=== PATIENT | female | born 1945 | race Caucasian/White ===

== ENCOUNTER → 2017-04-09 | Outpatient (CLI) | payer MEDICARE ==
[2016-05-18 14:35] VITALS: BP 119/60
[~2017-04-09] MED LIST: AMLO5TAB4 PO; ASPI325T8 PO; ATOR20TA PO; CALC1TAB75 PO; CLOP75TA PO; LISI-334 PO; NITR0.4T SL; TIZA4TAB8 PO; TRAM50TA PO; VENL150C PO; ZONI100C33 PO
--- NOTE | 2017-04-09 15:09 | CARD ---
APPROVED REPORT EXAM: Two-dimensional and M-mode echocardiogram with Doppler and color Doppler. Other Information Quality : Good INDICATION Cardiac Disease: CAD 2D DIMENSIONS RVDd2.7 (2.9-3.5cm)Left Atrium(2D)3.8 (1.6-4.0cm) IVSd0.8 (0.7-1.1cm)Aortic Root(2D)2.4 (2.0-3.7cm) LVDd4.6 (3.9-5.9cm)LVOT Diameter2.1 (1.8-2.4cm) PWd0.8 (0.7-1.1cm)LVDs3.3 (2.5-4.0cm) FS (%) 28.1 %SV52.3 ml LVEF(%)54.5 (>50%) Aortic Valve AoV Peak Zack.161.6cm/sAoV VTI35.1cm AO Peak GR.10.4mmHgLVOT Peak Zack.105.8cm/s AO Mean GR.6mmHgAVA (VMAX)2.21cm2 ED (VTI)2.30cm2 Mitral Valve MV E Jvdlwmlc08.6cm/sMV DECEL DMUD396va MV A Mwfdebxn197.8cm/sE/A Ratio0.8 Tricuspid Valve TR P. Qrzsgqtz612nn/sRAP JCBCRLSY0hgQg TR Peak Gr.04naUqESLC93ujEz Pulmonary Vein S1 Pfnbdiuo77.3cm/sD2 Sodjghlz57.1cm/s LEFT VENTRICLE The left ventricle is normal size. There is normal left ventricular wall thickness. The left ventricu lar systolic function is normal. The ejection fraction is 55-60%. There is normal LV segmental wall m otion. Transmitral Doppler flow pattern is Grade I-abnormal relaxation pattern. RIGHT VENTRICLE The right ventricle is normal size. The right ventricular systolic function is normal. ATRIA The left atrium size is normal. The right atrium size is normal. The interatrial septum is intact wit h no evidence for an atrial septal defect or patent foramen ovale as noted on 2-D or Doppler imaging. AORTIC VALVE The aortic valve is calcified but opens well. Doppler and Color Flow revealed no significant aortic r egurgitation. There is no significant aortic valvular stenosis. MITRAL VALVE The mitral valve is calcified but opens well. There is no evidence of mitral valve prolapse. There is no mitral valve stenosis. Doppler and Color-flow revealed trace mitral regurgitation. TRICUSPID VALVE The tricuspid valve is normal in structure and function. Doppler and Color Flow revealed physiologica l tricuspid regurgitation. The PA pressure was estimated at 21 mmHg. There is no tricuspid valve sten osis. PULMONIC VALVE The pulmonary valve is normal in structure and function. Doppler and Color Flow revealed trace pulmon ic valvular regurgitation. There is no pulmonic valvular stenosis. GREAT VESSELS The aortic root is normal in size. The ascending aorta is normal in size. The IVC is normal in size a nd collapses >50% with inspiration. PERICARDIAL EFFUSION There is no evidence of significant pericardial effusion. Critical Notification Critical Value: No <Conclusion> The left ventricular systolic function is normal. The ejection fraction is 55-60%. There is normal LV segmental wall motion. Transmitral Doppler flow pattern is Grade I-abnormal relaxation pattern. Doppler and Color-flow revealed trace mitral regurgitation. There is no evidence of significant pericardial effusion.
--- NOTE | 2017-04-09 15:25 | RAD ---
EXAM: Bilateral lower extremity arterial Doppler. HISTORY: Bilateral lower extremity pain and imbalance. COMPARISON: None. FINDINGS: Grayscale and Doppler analysis of the lower extremity arterial systems was performed. On the right, there are monophasic waveforms throughout. There is flow within the dorsalis pedis artery. On the left, the waveform appears monophasic within the common femoral artery, but this may be artifactual, as there are biphasic waveforms more distally throughout the left lower artery. Alternatively, there may be affected collateralization distal to the common femoral artery. There appear to be triphasic at the anterior tibial artery. IMPRESSION: 1. Flow limiting stenosis proximal to the right lower history arterial system. 2. Mildly flow limiting stenosis on the left, possibly with supplementation by thick collateralization to the left proximal superficial femoral artery.
== END | disposition home or self-care (01) ==
LOC: ECHO 13:09
PROVIDERS: ATTEND Physician Assistant Medical
DX: I08.1 Rheumatic disorders of both mitral and tricuspid valves (principal); R26.89 Other abnormalities of gait and mobility
CPT/HCPCS: 93306; 93925

== ENCOUNTER 2017-04-23 08:59 | Observation (INO) | payer MEDICARE ==
[~2017-04-23] VITALS: Ht 157.5 cm; Wt 93.5 kg
[2017-04-23] VITALS (22 sets, daily range): BP systolic 97–187; BP diastolic 61–91
[2017-04-23] MEDS ORDERED: DULO60CA6 PO (09:20)
[2017-04-23] MEDS ORDERED: CYAN10002 IJ (09:20)
[2017-04-23] MEDS ORDERED: ACET-704 PO (09:20)
[2017-04-23] MEDS ORDERED: LIDOCAINE 2% 20 ML VIAL. ONE ×2 (09:35→11:00)
[2017-04-23] MEDS ORDERED: ASPI-482 PO (09:54)
[2017-04-23 09:55] LABS: HEMOGLOBIN 11.9 g/dL (12.0-15.5); RED BLOOD COUNT 3.97 x10^6/uL (3.50-5.40); RED CELL DISTRIBUTION WIDTH 14.9 % (11.5-14.5); WHITE BLOOD COUNT 11.3 x10^3/uL (4.0-11.0)
[2017-04-23 09:59] LABS: CREATININE 1.7 mg/dL (0.6-1.0); GFR 29.5; POTASSIUM 4.7 mmol/L (3.5-5.1)
[2017-04-23] MEDS ORDERED: diphenhydrAMINE 50 MG/ML VIAL IVP ONE (10:00)
[2017-04-23] MEDS ORDERED: methylPREDNISolone SOD SUCC PF 125 MG/2 ML VIAL. IV ONE (10:00)
[2017-04-23] MEDS ORDERED: FAMOTIDINE 20 MG/2 ML VIAL IVP ONE (10:00)
[2017-04-23 10:16] LABS: INR 1.1 (0.8-1.1); PROTHROMBIN TIME PATIENT 13.2 SEC (11.7-14.0)
[2017-04-23] MEDS: IV 1/2 NORMAL SALINE 1,000 ML IV SCH ×2 (10:30→22:44)
[2017-04-23] MEDS ORDERED: fentaNYL PF VIAL 100 MCG/2 ML VIAL ONE ×2 (10:31→11:33)
[2017-04-23] MEDS ORDERED: MIDAZOLAM HCL/PF 2 MG/2 ML VIAL. ONE ×2 (10:31→11:33)
[2017-04-23] MEDS ORDERED: HEPARIN for IV BOLUS 10,000 UNIT/10 ML VIAL. ONE ×2 (10:57→12:12)
[2017-04-23] MEDS ORDERED: IODIXANOL 320 MG/ML 100 ML VIAL. ONE (12:06)
[2017-04-23] MEDS ORDERED: NITROGLYCERIN 200 MCG/2 ML SYRINGE FOR CATH/VASC LAB. IART ONE (12:15)
[2017-04-23] MEDS ORDERED: NITROGLYCERIN 200 MCG/2 ML SYRINGE FOR CATH/VASC LAB. ONE (13:02)
--- NOTE | 2017-04-23 13:06 | PDOC ---
MODERATE SEDATION ASSESSMENT RISKS/ALTERNATIVES Risks/Alternatives Risks and alternatives of this type of sedation and procedure discussed with: RISK/ALTERNATIVES: Patient H & P ON CHART H & P H & P on chart and reviewed for co-morbid conditions and appropriate labs. H&P ON CHART: Yes STATUS PREG STATUS ASSESSED: N/A MEDS/ALLERGIES REVIEWED Meds/Allergies Reviewed Medications and Allergies including time and route of recently administered narcotics and sedatives. MEDS/ALLERGIES REVIEWED: Yes ASA RATING ASA RATING: II AIRWAY ASSESSMENT Airway Assessment Airway patency, oral function limitations, presence of caps, crowns, dentures, partials, and ability to extend neck assessed. AIRWAY ASSESSMENT: Yes MALLAMPATI SCORE MALLAMPATI SCORE: II PRE-SEDATION ASSESSMENT PRE-SEDATION ASSESSMENT: Yes ABRAHAM CAMPBELL MD Apr 23, 2017 13:06
[2017-04-23] MEDS ORDERED: fentaNYL PF VIAL 100 MCG/2 ML VIAL IV ONE (13:15)
[2017-04-23] MEDS ORDERED: MAGNESIUM HYDROXIDE 2,400 MG/30 ML ORAL.SUSP. PO PRN (13:15)
[2017-04-23] MEDS ORDERED: IODIXANOL 320 MG/ML 100 ML VIAL. IART ONE (13:15)
[2017-04-23] MEDS ORDERED: ACETAMINOPHEN 325 MG TABLET. PO PRN (13:15)
[2017-04-23] MEDS ORDERED: NITROGLYCERIN SUBLINGUAL 0.4 MG BOTTLE OF 25. SL PRN (13:15)
[2017-04-23] MEDS ORDERED: HEPARIN for IV BOLUS 10,000 UNIT/10 ML VIAL. IV ONE (13:15)
[2017-04-23] MEDS ORDERED: LIDOCAINE 2% 20 ML VIAL. IJ ONE (13:15)
[2017-04-23] MEDS ORDERED: MIDAZOLAM HCL/PF 2 MG/2 ML VIAL. IV ONE (13:15)
--- NOTE | 2017-04-23 14:41 | CARD ---
APPROVED REPORT Procedure(s) performed: 1. Aortogram with bilateral lower extremity runoff 2. Successful orbital atherectomy/drug coated balloon angioplasty/stent placement to the right superf icial femoral artery 3. Successful drug coated balloon angioplasty to left tibioperoneal trunk 4. Vascular ultrasound for posterior tibial arterial access Sedation Time: 162 minutes INDICATION The indication(s) include : Peripheral vascular disease with claudication. PROCEDURE NARRATIVE After explaining the risks, benefits and alternative options, informed consent was obtained from vikash ent. Patient was brought to the cardiac Staff Development Educator and her right groin was prepped and draped in the us ua fashion. 20 mL of 2% lidocaine was infiltrated into the skin and subcutaneous tissues for local a nesthesia. Arterial access was obtained in the right common femoral artery and a 5 Kitt[place] sheath was inserted. 5 [place] pigtail catheter was used to perform aortogram with bilateral lower extremity runo ff. A 5 [place] crossover catheter was advanced over the aortic sergey and with the tip positioned in the left superficial femoral artery, left lower extremity angiography was performed. The following fi ndings were noted. FINDINGS 1. No significant stenosis involving the distal descending aorta. 2. 30% stenosis involving the ostial segment of right common iliac artery without any significant gr adient across the stenosis. No significant stenosis involving the left common iliac and bilateral ext ernal iliac arteries. 3. No significant stenosis involving bilateral common femoral arteries. 4. No significant stenosis involving left superficial femoral and popliteal arteries. The right supe rficial femoral artery showed calcified 90% stenosis involving the distal segment. The right poplitea l artery did not show any significant stenosis. 5. The left tibioperoneal trunk showed 90% calcified stenosis. There was two vessel runoff below the knee left lower extremity with long chronic total occlusion of the left anterior tibial artery. 6. There is two-vessel runoff below the knee right lower extremity with chronic total occlusion of t he right anterior tibial artery. INTERVENTION Patient's right foot and lower leg with prepped and draped in the usual fashion in preparation for po sterior tibial access. After infiltrating the skin and subcutis tissues with local anesthetic, line ordering clinician ior tibial arterial access was obtained under vascular ultrasound guidance. 6 Kitt[place] sheath was inser marisa. Subsequently, the sheath in the right groin was exchanged over a wire to a 6 [place] 45 cm xiomara ation sheath that was advanced over the aortic sergey with the help off across oval catheter and the tip was positioned in the left superficial femoral artery. The stenosis in the left tibioperoneal trunk was crossed with a 0.014 inch command guidewire. This wa s dilated with a 3.0 x 20 mm [place] balloon following which drug coated balloon angioplasty wa s performed using Medtronic 4 x 40 mm Inpact DCB. Follow-up angiography showed resolution of the sten osis to 0% with good distal flow. Subsequently, a 0.014 inch viper guidewire was advanced through the sheath in the right posterior tibial artery and the lesion in the distal segment of the right superf icial femoral artery was crossed. Multiple orbital atherectomy passes were then performed using 1.5 [employer] orbital atherectomy catheter. Subsequently, drug coated balloon angioplasty was performed on this lesion using 5.0 x 80 mm medtronic Inpact DCB. This was then treated with a 5.5 x 100 mm TeleDNA supera self-expanding stent. Follow-up angiography showed resolution of the stenosis to 0% with g ood distal flow. Patient tolerated the procedure well. Hemostasis in the right groin was achieved usi ng manual compression and right posterior tibial artery using TR band. There were no immediate compli cations. Conclusion 1. Bilateral lower extremity peripheral vascular disease as described above 2. Successful orbital atherectomy/DCB angioplasty/stent placement to right superficial femoral arter y 3. Successful drug-coated balloon angioplasty to left tibioperoneal trunk
[2017-04-23] MEDS ORDERED: ATORVASTATIN CALCIUM 20 MG TABLET PO SCH (21:00)
[2017-04-23] MEDS: ACETAMINOPHEN/CODEINE 300/30MG TABLET. PO PRN (22:45)
[2017-04-24 02:35] VITALS: BP 147/65
[2017-04-24 03:00] VITALS: BP 140/71
[2017-04-24 07:00] VITALS: BP 140/71
[2017-04-24] MEDS ORDERED: amLODIPine BESYLATE 5 MG TABLET PO SCH (09:00)
[2017-04-24] MEDS ORDERED: ASPIRIN ENTERIC COATED 81 MG TABLET.DR. PO SCH (09:00)
[2017-04-24] MEDS ORDERED: LISINOPRIL 20 MG TABLET PO SCH (09:00)
[2017-04-24] MEDS ORDERED: CLOPIDOGREL BISULFATE 75 MG TABLET PO SCH (09:00)
[2017-04-24] MEDS: ACETAMINOPHEN/CODEINE 300/30MG TABLET. PO PRN (09:07)
[2017-04-24] MEDS: IV 1/2 NORMAL SALINE 1,000 ML IV SCH (09:10)
[2017-04-24 11:00] VITALS: BP 110/55
--- NOTE | 2017-04-24 11:42 | DISCH ---
DISCHARGE INSTRUCTIONS Condition on Discharge Condition on Discharge: Stable Activity After Discharge Activity Instructions for Disc: Activity as tolerated, Avoid exertion Lifting Instructions after Dis: No heavy lifting, No pulling or pushing Exercise Instruction after Dis: Progress as tolerated Weight Bearing Status after Di: Full weight bearing, As tolerated Diet after Discharge Diet after Discharge: Cardiac Contacting the DRArsen after DC Call your doctor for: Concerns you may have HARJEET CLOUD APRN Apr 24, 2017 11:42
--- NOTE | 2017-04-24 12:09 | PDOC3 ---
HARJEET CLOUD BACTERIOLOGIST FOOD 04/24/17 1209: Discharge Summary Visit Information Date of Admission: Apr 23, 2017 Date of Discharge: Apr 24, 2017 Admitting Diagnosis Comment: Claudication Final Diagnosis PAD Brief Hospital Course Allergies Allergies Coded Allergies Type Severity Reaction Last Updated Verified iodine Allergy Intermediate 05/18/16 Yes sodium chloride Allergy Intermediate 04/15/16 Yes morphine Adverse Reaction Intermediate vomiting 05/18/16 Yes Vital Signs Vital Signs Date Time Temp Pulse Resp B/P (MAP) Pulse Ox O2 Delivery O2 Flow Rate FiO2 04/24/17 11:00 98.0 63 20 110/55 (73) 99 Room Air 98.0 04/24/17 10:10 2.0 Lab Results Laboratory Tests Test 04/23/17 09:45 White Blood Count 11.3 x10^3/uL (4.0-11.0) Red Blood Count 3.97 x10^6/uL (3.50-5.40) Hemoglobin 11.9 g/dL (12.0-15.5) Hematocrit 35.0 % (36.0-47.0) Mean Corpuscular Volume 88 fL (79-100) Mean Corpuscular Hemoglobin 30 pg (25-35) Mean Corpuscular Hemoglobin Concent 34 g/dL (31-37) Red Cell Distribution Width 14.9 % (11.5-14.5) Platelet Count 373 x10^3/uL (140-400) Prothrombin Time 13.2 SEC (11.7-14.0) Prothromb Time International Ratio 1.1 (0.8-1.1) Activated Partial Thromboplast Time 25 SEC (24-38) Sodium Level 141 mmol/L (136-145) Potassium Level 4.7 mmol/L (3.5-5.1) Chloride Level 107 mmol/L (98-107) Carbon Dioxide Level 23 mmol/L (21-32) Anion Gap 11 (6-14) Blood Urea Nitrogen 25 mg/dL (7-20) Creatinine 1.7 mg/dL (0.6-1.0) Estimated GFR (Cockcroft-Gault) 29.5 Glucose Level 155 mg/dL (70-99) Calcium Level 9.0 mg/dL (8.5-10.1) Brief Hospital Course Ms. Parker is a 72 old female, with a history of coronary artery disease s/p coronary artery bypass surgery, who presented to the office with complaints of bilateral lower extremity pain that was worse with exertion. Arterial duplex scan was suggestive of significant bilateral lower extremity peripheral vascular disease. Given symptomatology, she was brought electively for aortogram with bilateral lower extremity runoff. Patient underwent successful orbital atherectomy/DCB angioplasty/stent placement to right superficial femoral artery along with successful drug-coated balloon angioplasty to left tibioperoneal trunk. Tolerated procedure well. Monitored overnight without acute complications. Right femoral arteriotomy site soft, clean, and dry. No ecchymosis, erythema, or hematoma present. Bilateral lower extremity neurovascular status intact. Bilateral DP pulses palpable. Lungs CTA. CV: normal S1,S2. RRR. Telemetry reveals normal sinus rhythm. CP free. Patient discharged home in stable condition. Is to follow up in 4 weeks. Discharge Information Condition at Discharge: Stable Follow Up: Weeks (4) Disposition/Orders: D/C to Home Scheduled Amlodipine Besylate (Norvasc), 1 TAB PO DAILY, (Reported) Aspirin (Aspir 81), 1 TAB PO DAILY, (Reported) Atorvastatin Calcium (Lipitor), 40 MG PO HS, (Reported) Clopidogrel Bisulfate (Clopidogrel), 1 TAB PO DAILY, (Reported) Cyanocobalamin (Vitamin B-12) (Cyanocobalamin Injection), 1,000 MCG IJ QMONTH, ( Reported) Duloxetine Hcl (Cymbalta), 120 MG PO DAILY, (Reported) Lisinopril (Lisinopril), 1 TAB PO DAILY, (Reported) Nitroglycerin (Nitrostat), 1 TAB SL UD, (Reported) Venlafaxine Hcl (Effexor Xr), 1 CAP PO BID, (Reported) Zonisamide (Zonegran), 100 MG PO BID, (Reported) Scheduled PRN Acetaminophen With Codeine (Tylenol With Codeine #3 Tablet), 1 TAB PO PRN Q6HRS PRN for PAIN, (Reported) Miscellaneous Medications Calcium Carbonate/Vitamin D3 (Calcium 600 + Vit D 200 Tablet), 1 EACH PO, ( Reported) Discontinued Medications Tizanidine Hcl (Zanaflex), 1 TAB PO Q8HRS, (Reported) Patient Instructions Patient Instructions GENERAL INSTRUCTIONS: 1. Your dressing should be removed prior to leaving the hospital. 2. It is OK to shower the day after your procedure. 3. If you received stents, be sure to carry your stent information card with you in your wallet/purse at all times. 4. Call the office immediately at [phone] if you notice any fever or if there is redness, worsening tenderness/pain, increased bruising, or drainage from the puncture site. 5. Should you have bleeding from the site, lie down immediately & put pressure on the site. The pressure should be hard enough to stop the bleeding. Have the nearest person call 911. DO NOT try to drive to the ER with active bleeding. 6. If you notice a change in color, coolness to touch, or loss of feeling in the affected extremity, come to the emergency room. Please have someone drive you or call 911 if no one is available. DO NOT drive yourself. 7. If you normally take glucophage (metformin), please do not take this medicine for 48 hours following your procedure. 8. DO NOT STOP TAKING YOUR PLAVIX OR ASPIRIN UNLESS IT IS CLEARED BY A DIRECTOR TRAFFIC AND PLANNING OF YOUR SOCIAL ECONOMIST AT OUR OFFICE. 9. QUIT SMOKING: the [place] [employer], [employer], & [employer] have cessation resources available on their websites 10. Please have someone available to drive you home from the hospital as you may be limited by sedation medications given during the procedure. Femoral (Groin) access: 1. Do no lifting, pushing, pulling, bending, stooping, or recurrent stair climbing for 3 days following your procedure. 2. Once past the first 3 days, do not do any HEAVY exertion or lifting for one week following the procedure. No gym workouts, running, lifting greater than a gallon of milk, etc 3. Do not submerge in bath or pool for one week. OK to drive 3 days following your procedure, but if going long distance, do not go alone & take hourly breaks to get out of car and walk around. Call the office at [phone] for any questions or concerns. ABRAHAM CAMPBELL MD 04/24/17 1601: Discharge Summary Brief Hospital Course Brief Hospital Course Agree with TREE SURGEON's assessment and plan. s/p drug coated balloon angioplasty to left tibioperoneal trunk and orbital atherectomy/DCB angioplasty/stent placement to right superficial femoral artery, presently doing well. Vascular access sites looked good. CAD status stable. Follow-up with our office in 1 month. Discharge Information Scheduled Amlodipine Besylate (Norvasc), 1 TAB PO DAILY, (Reported) Aspirin (Aspir 81), 1 TAB PO DAILY, (Reported) Atorvastatin Calcium (Lipitor), 40 MG PO HS, (Reported) Clopidogrel Bisulfate (Clopidogrel), 1 TAB PO DAILY, (Reported) Cyanocobalamin (Vitamin B-12) (Cyanocobalamin Injection), 1,000 MCG IJ QMONTH, ( Reported) Duloxetine Hcl (Cymbalta), 120 MG PO DAILY, (Reported) Lisinopril (Lisinopril), 1 TAB PO DAILY, (Reported) Nitroglycerin (Nitrostat), 1 TAB SL UD, (Reported) Venlafaxine Hcl (Effexor Xr), 1 CAP PO BID, (Reported) Zonisamide (Zonegran), 100 MG PO BID, (Reported) Scheduled PRN Acetaminophen With Codeine (Tylenol With Codeine #3 Tablet), 1 TAB PO PRN Q6HRS PRN for PAIN, (Reported) Miscellaneous Medications Calcium Carbonate/Vitamin D3 (Calcium 600 + Vit D 200 Tablet), 1 EACH PO, ( Reported) Discontinued Medications Tizanidine Hcl (Zanaflex), 1 TAB PO Q8HRS, (Reported) HARJEET CLOUD APRN Apr 24, 2017 12:09 ABRAHAM CAMPBELL MD Apr 24, 2017 16:01
== END 2017-04-24 13:00 | disposition home or self-care (01) ==
LOC: CCL 08:59 → INTOOBSV 11:36 → 2 NORTH 11:36
PROVIDERS: ADMIT Internal Medicine Cardiovascular Disease; ATTEND Internal Medicine Cardiovascular Disease
DX: I73.9 Peripheral vascular disease, unspecified (principal); I70.211 Atherosclerosis of native arteries of extremities with intermittent claudication, right leg; I25.10 Atherosclerotic heart disease of native coronary artery without angina pectoris; Z95.1 Presence of aortocoronary bypass graft; Z79.82 Long term (current) use of aspirin
CPT/HCPCS: 36415; 37227; 37228; 75630; 76937; 80048; 85027; 85610; 85730; 96374; 96375; C1713; C1724; C1725; C1758; C1769; C1892; G0378; G0379; J1200; J1644; J2001; J2250; J2930; J3010; J3490; J7030; S0028; 99152; 99153

== ENCOUNTER 2017-07-30 06:19 | Outpatient (CLI) | payer MEDICARE ==
[~2017-07-30] VITALS: Ht 157.5 cm; Wt 117.0 kg
[~2017-07-30 06:19] MED LIST changes: +ACET-704 PO; +ASPI-482 PO; +CYAN10002 IJ; +DULO60CA6 PO
[2017-07-30] MEDS ORDERED: IV NORMAL SALINE 1000ML BAG 1,000 ML IV SCH (06:38)
[2017-07-30] MEDS ORDERED: TRAM50TA PO (06:55)
[2017-07-30] MEDS ORDERED: TIZA4TAB PO (06:55)
[2017-07-30 07:00] VITALS: BP 100/72
[2017-07-30] MEDS ORDERED: IODIXANOL 320 MG/ML 100 ML VIAL. ONE (07:08)
[2017-07-30] MEDS ORDERED: LIDOCAINE 2% 20 ML VIAL. ONE (07:08)
[2017-07-30 07:11] LABS: HEMATOCRIT 40.6 % (36.0-47.0); HEMOGLOBIN 13.2 g/dL (12.0-15.5); RED BLOOD COUNT 4.79 x10^6/uL (3.50-5.40); WHITE BLOOD COUNT 10.9 x10^3/uL (4.0-11.0)
[2017-07-30 07:16] LABS: CALCIUM 10.1 mg/dL (8.5-10.1); CREATININE 1.7 mg/dL (0.6-1.0); GFR 29.5
[2017-07-30 07:19] LABS: INR 1.1 (0.8-1.1); PROTHROMBIN TIME PATIENT 13.6 SEC (11.7-14.0)
[2017-07-30] MEDS ORDERED: FAMOTIDINE 20 MG/2 ML VIAL ONE (07:44)
[2017-07-30] MEDS ORDERED: methylPREDNISolone SOD SUCC PF 125 MG/2 ML VIAL. ONE (07:44)
[2017-07-30] MEDS ORDERED: diphenhydrAMINE 50 MG/ML VIAL ONE (07:44)
== END 2017-07-30 08:45 | disposition home or self-care (01) ==
LOC: CCL 06:19
PROVIDERS: ATTEND Internal Medicine Cardiovascular Disease
DX: I70.213 Atherosclerosis of native arteries of extremities with intermittent claudication, bilateral legs (principal); Z53.8 Procedure and treatment not carried out for other reasons; I25.10 Atherosclerotic heart disease of native coronary artery without angina pectoris; E78.00 Pure hypercholesterolemia, unspecified; M19.91 Primary osteoarthritis, unspecified site; F41.9 Anxiety disorder, unspecified; F32.9 Major depressive disorder, single episode, unspecified; D64.9 Anemia, unspecified; Z86.39 Personal history of other endocrine, nutritional and metabolic disease; Z90.49 Acquired absence of other specified parts of digestive tract; Z90.710 Acquired absence of both cervix and uterus; Z87.39 Personal history of other diseases of the musculoskeletal system and connective tissue; Z88.6 Allergy status to analgesic agent; Z91.041 Radiographic dye allergy status
CPT/HCPCS: 36415; 80048; 85027; 85610